=== PATIENT | male | born 1955 | race Caucasian/White ===

== ENCOUNTER 2025-04-17 22:24 | Inpatient (IN) | payer MEDICARE, OTHER ==
[~2025-04-17] VITALS: Ht 177.8 cm; Wt 138.3 kg
[2025-04-17] MEDS ORDERED: ACETAMINOPHEN 325 MG TAB PO PRN (22:35)
[2025-04-17] MEDS ORDERED: MG-AL HYDROXIDE/SIMETICONE 30 ML UDC PO PRN (22:35)
[2025-04-17] MEDS ORDERED: Menthol/Zinc Oxide 4 GM THIN T PRN (23:00)
[2025-04-17] MEDS ORDERED: NORVASC10 MG PO (23:10)
[2025-04-17] MEDS ORDERED: DEXAMETHASONE4 MG PO (23:11)
[2025-04-17] MEDS ORDERED: LEXAPRO20 MG PO (23:12)
[2025-04-17] MEDS ORDERED: APRESOLINE10 MG PO (23:13)
[2025-04-17] MEDS ORDERED: HYDROXYZINE HCL25 MG PO (23:14)
[2025-04-17] MEDS ORDERED: KEPPRA XR500 MG PO (23:15)
[2025-04-17] MEDS ORDERED: LISINOPRIL40 MG PO (23:15)
[2025-04-17] MEDS ORDERED: PANTOPRAZOLE SO40 MG PO (23:16)
[2025-04-17] MEDS ORDERED: B-1100 M1 PO (23:17)
[2025-04-17] MEDS ORDERED: GEODON20 MG/1 ML IM ×2 (23:20→23:21)
[2025-04-17] MEDS ORDERED: STERILE WATER 110 ML IM (23:22)
[2025-04-17] MEDS ORDERED: ATIVAN1 MG PO (23:22)
[2025-04-17] MEDS ORDERED: VISTARIL25 MG IM (23:23)
[2025-04-17] MEDS ORDERED: Water, Sterile 10 ML VIAL IM PRN (23:25)
[2025-04-18] MEDS ORDERED: hydrOXYzine hydrochloride 50 MG/ML VIAL IM PRN (00:05)
[2025-04-18 00:50] VITALS: BP 154/87
[2025-04-18 01:15] VITALS: BP 154/87
[2025-04-18 06:51] LABS: BASO # 0.0 10*3/uL (0.0-0.1); BASO % 0.1 % (0.0-1.0); EOS # 0.0 10*3/uL (0.0-0.4); EOS % 0.1 % (1.0-4.0); MEAN CELL VOLUME 91.0 fl (80.0-94.0); MEAN CORPUSCULAR HGB 30.7 pg (27.0-31.0); MEAN PLATELET VOLUME 9.3 fl (9.6-12.3); MONO # 0.9 10*3/uL (0.1-1.0); MONO % 7.8 % (3.0-9.0); NEUT # 9.1 10*3/uL (2.3-7.9); NEUT % 81.8 % (47.0-73.0); NUCLEATED RED BLOOD CELL 0.0 % (0.0-0.0); NUCLEATED RED BLOOD CELL 0.0 10*3/uL (0.0-0.0); PLATELET COUNT AUTOMATED 190 10*3/uL (130-400); RED CELL DISTRI WIDTH 13.5 % (0-14.5)
[2025-04-18 07:18] LABS: BUN 19 mg/dl (9-23); LDL CHOLESTEROL 87 mg/dL (9-159); SGPT/ALT 36 U/L (5-49)
[2025-04-18 07:33] LABS: VITAMIN D, 25-HYDROXY 32.8 ng/mL (30-100)
[2025-04-18 08:00] VITALS: BP 128/77
[2025-04-18] MEDS ORDERED: ESCITALOPRAM OXALATE 10 MG TAB PO SCH (09:00)
[2025-04-18] MEDS ORDERED: LEVETIRACETAM 500 MG TAB PO SCH (09:00)
[2025-04-18] MEDS ORDERED: LISINOPRIL 40 MG TAB PO SCH (10:00)
[2025-04-18] MEDS ORDERED: Thiamine 100 MG TAB PO SCH (10:00)
[2025-04-18 10:56] LABS: BILIRUBIN Negative (Negative); BLOOD Negative (Negative); CLARITY Clear (Clear); COLOR Yellow (Yellow); KETONE Negative (Negative); LEUKO ESTERASE Negative (Negative); NITRITE Negative (Negative); PH 6.5 (4.5-8.0); SPECIFIC GRAVITY <= 1.005 (1.001-1.030); UROBILINOGEN 0.2 E.U./dl (0.0-1.0)
[2025-04-18 11:29] LABS: BACTERIA TRACE; WBC 0-2 wbc/hpf (0-5)
[2025-04-18 14:34] VITALS: BP 128/77
[2025-04-18 20:00] VITALS: BP 152/74
[2025-04-18] MEDS ORDERED: DIVALPROEX (DR) 250 MG TAB PO SCH (21:00)
[2025-04-19] MEDS ORDERED: Cholecalciferol 2,000 UNIT TABLET (50 MCG) PO SCH (09:00)
[2025-04-19 20:00] VITALS: BP 148/80
[2025-04-20 08:00] VITALS: BP 159/86
[2025-04-20 20:00] VITALS: BP 138/72
[2025-04-21 08:29] VITALS: BP 125/72
[2025-04-21 20:00] VITALS: BP 134/75
[2025-04-22 06:31] LABS: BASO # 0.0 10*3/uL (0.0-0.1); BASO % 0.1 % (0.0-1.0); EOS # 0.0 10*3/uL (0.0-0.4); EOS % 0.0 % (1.0-4.0); MEAN CELL VOLUME 92.0 fl (80.0-94.0); MEAN CORPUSCULAR HGB 30.9 pg (27.0-31.0); MEAN PLATELET VOLUME 9.4 fl (9.6-12.3); MONO # 0.5 10*3/uL (0.1-1.0); MONO % 5.7 % (3.0-9.0); NEUT # 7.5 10*3/uL (2.3-7.9); NEUT % 83.4 % (47.0-73.0); NUCLEATED RED BLOOD CELL 0.0 % (0.0-0.0); NUCLEATED RED BLOOD CELL 0.0 10*3/uL (0.0-0.0); PLATELET COUNT AUTOMATED 152 10*3/uL (130-400); RED CELL DISTRI WIDTH 13.4 % (0-14.5)
[2025-04-22 07:13] LABS: BUN 19 mg/dl (9-23); SGPT/ALT 27 U/L (5-49); VALPROIC ACID (DEPAKENE) 15.7 ug/ml (50-100)
[2025-04-22 08:00] VITALS: BP 145/80
[2025-04-22] MEDS ORDERED: DIVALPROEX SOD250 MG PO (09:41)
[2025-04-22] MEDS ORDERED: HYDROXYZINE PAM25 M1 PO (09:41)
[2025-04-22] MEDS ORDERED: ESCITALOPRAM OX10 MG PO (09:41)
== END 2025-04-22 15:40 | disposition home or self-care (01) | DRG 885 ==
LOC: 3N 22:24
PROVIDERS: Counselor Professional; ADMIT Psychiatry & Neurology Psychiatry; ATTEND Psychiatry & Neurology Psychiatry
PROC: GZHZZZZ Group Psychotherapy (ICD-10-PCS; principal; 2025-04-18)
PROC: GZ56ZZZ Individual Psychotherapy, Supportive (ICD-10-PCS; 2025-04-18)
DX: F31.81 Bipolar II disorder (principal); R45.851 Suicidal ideations; C71.9 Malignant neoplasm of brain, unspecified; I10 Essential (primary) hypertension; R73.03 Prediabetes; I51.7 Cardiomegaly; R56.9 Unspecified convulsions; K21.9 Gastro-esophageal reflux disease without esophagitis; F41.1 Generalized anxiety disorder; F42.9 Obsessive-compulsive disorder, unspecified; Z79.899 Other long term (current) drug therapy; Z79.01 Long term (current) use of anticoagulants; Z79.2 Long term (current) use of antibiotics